=== PATIENT | male | born 1970 | race Caucasian/White ===

== ENCOUNTER → 2019-04-30 | Outpatient (CLI) | payer SELFPAY ==
[~2019-04-30] MED LIST: MOTRIN800 MG PO
[2019-04-30 11:49] LABS: BASO % 0.2 % (0.0-1.0); HEMOGLOBIN 15.7 g/dl (14.0-18.0); LYMPH # 1.5 10*3/uL (1.3-4.4); LYMPH % 27.7 % (27.0-41.0); MEAN CELL VOLUME 89.5 fl (80.0-94.0); MEAN CORPUSCULAR HGB 31.2 pg (27.0-31.0); MEAN CORPUSCULAR HGB CONC 34.9 g/dl (33.0-37.0); MEAN PLATELET VOLUME 8.8 fl (9.6-12.3); MONO # 0.4 10*3/uL (0.1-1.0); MONO % 7.7 % (3.0-9.0); NEUT # 3.4 10*3/uL (2.3-7.9); PLATELET COUNT AUTOMATED 233 10*3/uL (130-400); RED BLOOD COUNT 5.03 10*6/uL (4.50-5.90); RED CELL DISTRI WIDTH 12.6 % (0-14.5); WHITE BLOOD COUNT 5.3 10*3/uL (4.8-10.8)
[2019-04-30 12:19] LABS: ALBUMIN 3.9 gm/dl (3.1-4.5); BUN 13 mg/dl (7-24); CHLORIDE 106 mmol/L (98-107); POTASSIUM 3.9 mmol/L (3.5-5.1); SGOT/AST 18 IU/L (3-35); SGPT/ALT 36 U/L (12-78); SODIUM 141 mmol/L (136-145)
[2019-04-30 12:20] LABS: ALKALINE PHOSPHATASE 81 U/L (45-117); CREATININE 1.21 mg/dL (0.70-1.30)
== END | disposition home or self-care (01) ==
LOC: LAB 11:03
PROVIDERS: Nurse Practitioner Family
DX: K62.5 Hemorrhage of anus and rectum (principal); R19.8 Other specified symptoms and signs involving the digestive system and abdomen

== ENCOUNTER → 2019-05-01 | Outpatient (CLI) | payer SELFPAY | END | disposition home or self-care (01) | LOC: LAB 11:58 | DX: K62.5 Hemorrhage of anus and rectum (principal); R19.8 Other specified symptoms and signs involving the digestive system and abdomen ==

== ENCOUNTER 2021-06-07 01:56 | Inpatient (IN) | payer SELFPAY ==
[2021-06-07] VITALS (12 sets, daily range): BP systolic 94–125; BP diastolic 50–78
[~2021-06-07] VITALS: Ht 177.8 cm; Wt 67.7 kg
[2021-06-07 02:56] LABS: HEMATOCRIT 44.7 % (42.0-52.0); MEAN CORPUSCULAR HGB 30.2 pg (27.0-31.0); MEAN CORPUSCULAR HGB CONC 34.7 g/dl (33.0-37.0); PLATELET COUNT AUTOMATED 187 10*3/uL (130-400); RED BLOOD COUNT 5.14 10*6/uL (4.50-5.90); RED CELL DISTRI WIDTH 12.3 % (0-14.5); WHITE BLOOD COUNT 8.9 10*3/uL (4.8-10.8)
[2021-06-07 03:11] LABS: ALBUMIN 3.7 gm/dl (3.1-4.5); ALKALINE PHOSPHATASE 99 U/L (45-117); BUN 18 mg/dl (7-24); CHLORIDE 104 mmol/L (98-107); CREATININE 1.16 mg/dL (0.70-1.30); LIPASE 61 U/L (73-393); POTASSIUM 3.6 mmol/L (3.5-5.1); SGOT/AST 17 IU/L (3-35); SGPT/ALT 23 U/L (12-78); SODIUM 136 mmol/L (136-145); TOTAL PROTEIN 7.5 gm/dL (6.4-8.2)
[2021-06-07 03:20] LABS: PLATELET SUFFICIENCY NORMAL (NORMAL); TOTAL CELLS COUNTED 100 #CELLS
[2021-06-07 11:32] LABS: BILIRUBIN Negative (Negative); BLOOD Negative (Negative); CLARITY Clear (Clear); COLOR Yellow (Yellow); GLUCOSE Negative (Negative); KETONE Trace (Negative); LEUKO ESTERASE Negative (Negative); NITRITE Negative (Negative); SPECIFIC GRAVITY >= 1.030 (1.001-1.030)
[2021-06-07 11:44] LABS: BACTERIA TRACE; MUCOUS TRACE
[2021-06-08] VITALS: BP 108/65
[2021-06-08 06:36] LABS: HEMATOCRIT 38.5 % (42.0-52.0); LYMPH # 0.7 10*3/uL (1.3-4.4); LYMPH % 8.3 % (27.0-41.0); MEAN CORPUSCULAR HGB 30.2 pg (27.0-31.0); MEAN PLATELET VOLUME 9.3 fl (9.6-12.3); MONO # 0.7 10*3/uL (0.1-1.0); MONO % 7.6 % (3.0-9.0); NEUT # 7.4 10*3/uL (2.3-7.9); NEUT % 83.6 % (47.0-73.0); PLATELET COUNT AUTOMATED 167 10*3/uL (130-400); RED CELL DISTRI WIDTH 12.8 % (0-14.5); WHITE BLOOD COUNT 8.8 10*3/uL (4.8-10.8)
[2021-06-08 06:38] LABS: MEAN CELL VOLUME 91.7 fl (80.0-94.0)
[2021-06-08 06:41] LABS: BUN 12 mg/dl (7-24); CHLORIDE 108 mmol/L (98-107); POTASSIUM 3.6 mmol/L (3.5-5.1); SODIUM 139 mmol/L (136-145)
[2021-06-08 08:00] VITALS: BP 143/67
[2021-06-08 12:00] VITALS: BP 119/75
[2021-06-08 15:39] LABS: LIPASE 45 U/L (73-393)
[2021-06-08 16:00] VITALS: BP 129/79
[2021-06-08 20:00] VITALS: BP 120/77
[2021-06-09] VITALS: BP 131/83
[2021-06-09 06:21] LABS: BASO % 0.1 % (0.0-1.0); HEMATOCRIT 37.7 % (42.0-52.0); LYMPH # 0.9 10*3/uL (1.3-4.4); LYMPH % 13.1 % (27.0-41.0); MEAN CELL VOLUME 90.4 fl (80.0-94.0); MEAN CORPUSCULAR HGB 30.5 pg (27.0-31.0); MEAN CORPUSCULAR HGB CONC 33.7 g/dl (33.0-37.0); MEAN PLATELET VOLUME 9.2 fl (9.6-12.3); MONO # 0.6 10*3/uL (0.1-1.0); MONO % 8.1 % (3.0-9.0); NEUT # 5.6 10*3/uL (2.3-7.9); NEUT % 78.4 % (47.0-73.0); PLATELET COUNT AUTOMATED 164 10*3/uL (130-400); RED BLOOD COUNT 4.17 10*6/uL (4.50-5.90); RED CELL DISTRI WIDTH 12.5 % (0-14.5); WHITE BLOOD COUNT 7.2 10*3/uL (4.8-10.8)
[2021-06-09 06:33] LABS: ALBUMIN 2.5 gm/dl (3.1-4.5); BUN 6 mg/dl (7-24); CHLORIDE 108 mmol/L (98-107); CREATININE 0.85 mg/dL (0.70-1.30); POTASSIUM 3.1 mmol/L (3.5-5.1); SGOT/AST 7 IU/L (3-35); SGPT/ALT 16 U/L (12-78); SODIUM 139 mmol/L (136-145)
[2021-06-09 06:35] LABS: ALKALINE PHOSPHATASE 65 U/L (45-117)
[2021-06-09 08:00] VITALS: BP 121/72
[2021-06-09 12:00] VITALS: BP 135/75
[2021-06-09 16:00] VITALS: BP 110/57
[2021-06-09 20:00] VITALS: BP 116/75
[2021-06-10] VITALS: BP 127/75
[2021-06-10 06:15] LABS: HEMATOCRIT 35.7 % (42.0-52.0); LYMPH # 1.1 10*3/uL (1.3-4.4); MEAN CELL VOLUME 88.1 fl (80.0-94.0); MEAN CORPUSCULAR HGB 30.1 pg (27.0-31.0); MEAN CORPUSCULAR HGB CONC 34.2 g/dl (33.0-37.0); MEAN PLATELET VOLUME 8.9 fl (9.6-12.3); MONO # 0.5 10*3/uL (0.1-1.0); MONO % 9.2 % (3.0-9.0); NEUT # 3.6 10*3/uL (2.3-7.9); NEUT % 69.6 % (47.0-73.0); PLATELET COUNT AUTOMATED 187 10*3/uL (130-400); RED BLOOD COUNT 4.05 10*6/uL (4.50-5.90); RED CELL DISTRI WIDTH 12.4 % (0-14.5); WHITE BLOOD COUNT 5.2 10*3/uL (4.8-10.8)
[2021-06-10 06:31] LABS: ALBUMIN 2.4 gm/dl (3.1-4.5); ALKALINE PHOSPHATASE 85 U/L (45-117); BUN 5 mg/dl (7-24); CHLORIDE 106 mmol/L (98-107); CREATININE 1.01 mg/dL (0.70-1.30); POTASSIUM 3.1 mmol/L (3.5-5.1); SGOT/AST 8 IU/L (3-35); SGPT/ALT 16 U/L (12-78); SODIUM 139 mmol/L (136-145); TOTAL PROTEIN 5.8 gm/dL (6.4-8.2)
[2021-06-10 08:00] VITALS: BP 102/57
[2021-06-10 12:00] VITALS: BP 122/73
[2021-06-10 16:00] VITALS: BP 110/60
[2021-06-10 20:00] VITALS: BP 96/50
[2021-06-11] VITALS: BP 118/78
[2021-06-11 06:25] LABS: MEAN CELL VOLUME 88.8 fl (80.0-94.0); MEAN CORPUSCULAR HGB 29.9 pg (27.0-31.0); MEAN CORPUSCULAR HGB CONC 33.7 g/dl (33.0-37.0); MEAN PLATELET VOLUME 8.6 fl (9.6-12.3); PLATELET COUNT AUTOMATED 208 10*3/uL (130-400); RED BLOOD COUNT 4.28 10*6/uL (4.50-5.90); RED CELL DISTRI WIDTH 12.6 % (0-14.5); WHITE BLOOD COUNT 4.8 10*3/uL (4.8-10.8)
[2021-06-11 06:39] LABS: ALBUMIN 2.7 gm/dl (3.1-4.5); ALKALINE PHOSPHATASE 99 U/L (45-117); BUN 8 mg/dl (7-24); CHLORIDE 106 mmol/L (98-107); CREATININE 0.93 mg/dL (0.70-1.30); POTASSIUM 3.7 mmol/L (3.5-5.1); SGOT/AST 15 IU/L (3-35); SGPT/ALT 25 U/L (12-78); SODIUM 139 mmol/L (136-145); TOTAL PROTEIN 6.2 gm/dL (6.4-8.2)
[2021-06-11 06:51] LABS: ATYPICAL LYMPHS 1 % (0-0); PLATELET SUFFICIENCY NORMAL (NORMAL); TOTAL CELLS COUNTED 100 #CELLS
[2021-06-11 08:00] VITALS: BP 113/67
[2021-06-11] MEDS ORDERED: CIPRO500 MG PO (10:04)
[2021-06-11] MEDS ORDERED: COLACE100 MG PO (10:04)
[2021-06-11] MEDS ORDERED: ZOFRAN4 MG PO (10:04)
[2021-06-11] MEDS ORDERED: PERCOCET 5-3251 EACH PO (10:04)
[2021-06-11] MEDS ORDERED: FLAGYL500 MG PO (10:04)
[2021-06-11 12:00] VITALS: BP 111/68
[2021-06-11] MEDS ORDERED: HYDROCODONE-AC1 EAC1 PO (15:26)
== END 2021-06-11 15:25 | disposition home or self-care (01) | DRG 339 ==
LOC: ED 01:56 → EDHOLD 04:15 → 5E 04:15
PROVIDERS: Emergency Medicine; Internal Medicine; Nurse Practitioner; Registered Nurse; Student in an Organized Health Care Education/Training Program; ADMIT Family Medicine; ATTEND Family Medicine
PROC: 0DTJ4ZZ Resection of Appendix, Percutaneous Endoscopic Approach (ICD-10-PCS; principal; 2021-06-07)
PROC: 0W9G40Z Drainage of Peritoneal Cavity with Drainage Device, Percutaneous Endoscopic Approach (ICD-10-PCS; 2021-06-07)
DX: K35.33 Acute appendicitis with perforation, localized peritonitis, and gangrene, with abscess (principal); E44.1 Mild protein-calorie malnutrition; F17.210 Nicotine dependence, cigarettes, uncomplicated; I95.9 Hypotension, unspecified; R73.9 Hyperglycemia, unspecified; E80.6 Other disorders of bilirubin metabolism; Z80.42 Family history of malignant neoplasm of prostate; Z71.6 Tobacco abuse counseling; Z81.8 Family history of other mental and behavioral disorders; Z68.21 Body mass index [BMI] 21.0-21.9, adult; Z79.899 Other long term (current) drug therapy

== ENCOUNTER → 2022-11-18 | Day surgery (SDC) | payer OTHER ==
[~2022-11-18] VITALS: Ht 177.8 cm; Wt 68.0 kg
[~2022-11-18] MED LIST changes: +CIPRO500 MG PO; +COLACE100 MG PO; +FLAGYL500 MG PO; +HYDROCODONE-AC1 EAC1 PO; +PERCOCET 5-3251 EACH PO; +ZOFRAN4 MG PO
[2022-11-18 09:01] VITALS: BP 117/75
[2022-11-18 09:25] VITALS: BP 108/71
[2022-11-18 09:40] VITALS: BP 102/68
[2022-11-18 09:55] VITALS: BP 104/58
== END | disposition home or self-care (01) ==
LOC: SDC 11-15 13:15
PROVIDERS: ATTEND Surgery
DX: Z12.11 Encounter for screening for malignant neoplasm of colon (principal); Z86.010 Personal history of colon polyps; K57.30 Diverticulosis of large intestine without perforation or abscess without bleeding; K21.9 Gastro-esophageal reflux disease without esophagitis

== ENCOUNTER → 2022-12-16 | Day surgery (SDC) | payer OTHER ==
[~2022-12-16] VITALS: Ht 177.8 cm; Wt 72.6 kg
[2022-12-16 09:16] VITALS: BP 110/57
[2022-12-16 09:53] VITALS: BP 107/62
[2022-12-16 10:08] VITALS: BP 123/71
[2022-12-16 10:23] VITALS: BP 116/85
== END | disposition home or self-care (01) ==
LOC: SDC 12-13 14:00
PROVIDERS: ATTEND Surgery
DX: D17.1 Benign lipomatous neoplasm of skin and subcutaneous tissue of trunk (principal); K21.9 Gastro-esophageal reflux disease without esophagitis; F17.210 Nicotine dependence, cigarettes, uncomplicated; Z79.899 Other long term (current) drug therapy

== ENCOUNTER → 2023-02-28 | Outpatient (CLI) | payer OTHER ==
[2023-03-05 00:06] LABS: FREE PSA 0.336 ng/mL (.)
== END | disposition home or self-care (01) ==
LOC: LAB 10:30
PROVIDERS: ATTEND Nurse Practitioner Family
DX: N40.1 Benign prostatic hyperplasia with lower urinary tract symptoms (principal)

== ENCOUNTER → 2023-06-27 | Day surgery (SDC) | payer OTHER ==
[~2023-06-27] VITALS: Ht 177.8 cm; Wt 74.8 kg
[~2023-06-27] MED LIST changes: +CARAFATE1 G1 PO; +PROTONIX40 MG PO
[2023-06-27 10:05] VITALS: BP 102/63
[2023-06-27 10:12] VITALS: BP 103/72
[2023-06-27 10:27] VITALS: BP 109/67
[2023-06-27 10:42] VITALS: BP 110/79
== END ==
LOC: SDC 06-24 12:30
PROVIDERS: ATTEND Surgery
DX: K21.9 Gastro-esophageal reflux disease without esophagitis (principal); R13.10 Dysphagia, unspecified; K29.50 Unspecified chronic gastritis without bleeding; F17.210 Nicotine dependence, cigarettes, uncomplicated; Z98.890 Other specified postprocedural states

== ENCOUNTER → 2024-01-04 | Outpatient (CLI) | payer OTHER | END | disposition home or self-care (01) | LOC: CT 11-15 08:00 | PROVIDERS: ATTEND Physician Assistant | DX: J43.9 Emphysema, unspecified (principal); R91.8 Other nonspecific abnormal finding of lung field; F17.210 Nicotine dependence, cigarettes, uncomplicated; I25.10 Atherosclerotic heart disease of native coronary artery without angina pectoris; Z12.2 Encounter for screening for malignant neoplasm of respiratory organs ==